=== PATIENT | female | born 1980 | race Caucasian/White ===

== ENCOUNTER 2016-06-04 10:12 | Outpatient (CLI) | payer OTHER ==
[2016-06-04 10:41] LABS: Glucose,Whole Blood 92 mg/dL (75-99)
== END 2016-06-04 12:00 | disposition home or self-care (01) ==
LOC: FBPOP 10:12
PROVIDERS: ATTEND Obstetrics & Gynecology
DX: O42.92 Full-term premature rupture of membranes, unspecified as to length of time between rupture and onset of labor (principal); O99.333 Smoking (tobacco) complicating pregnancy, third trimester; F17.200 Nicotine dependence, unspecified, uncomplicated; Z3A.38 38 weeks gestation of pregnancy
CPT/HCPCS: 59025; 99213

== ENCOUNTER 2016-06-04 15:12 | Inpatient (IN) | payer OTHER ==
[2016-06-04] MEDS ORDERED: LACTATED RINGERS 1,000 ML IV ONE (15:50)
[2016-06-04] MEDS ORDERED: ceFAZolin 3 GM in SODIUM CHLORIDE 0.9% 100 ML IVPB ONE (15:50)
[2016-06-04] MEDS ORDERED: CITRIC ACID-SODIUM CITRATE 15 ML CUP PO ONE (15:50)
[2016-06-04] MEDS ORDERED: LACTATED RINGERS 1,000 ML IV SCH (16:00)
[2016-06-04 16:06] LABS: Basophils % (A) 0 %; CH 29.2; CHCM 33.7; Eosinophils % (A) 0 %; HCT 41.4 % (34.0-46.0); HDW 2.58; HGB 13.7 gm/dL (11.4-16.0); Luc # (Auto) 0.11; Luc % (Auto) 1; Lymphocytes # (A) 1.7 k/uL (1.0-4.8); Lymphocytes % (A) 13 %; MCH 28.8 pg (25.0-35.0); MCV 87.1 fL (80.0-100.0); Mean Platelet Volume 8.2; Monocytes # (A) 0.6 k/uL (0-1.0); Monocytes % (A) 5 %; Neutrophils # (A) 10.3 k/uL (1.3-7.7); Neutrophils % (A) 80 %; RBC 4.75 m/uL (3.80-5.40); RDW 15.9 % (11.5-15.5); WBC 12.9 k/uL (3.8-10.6)
[2016-06-04 16:19] VITALS: BMI 55.2
--- NOTE | 2016-06-04 16:46 | P.HPOB ---
History of Present Illness H&P Date: 06/04/16 Chief Complaint: spontaneous amniorrhexis at home, green fluid this is a 35-year-old white female 2 para 1001 EDC 06/16/2016 at 38-2/ 7 weeks' gestation. Patient presents with spontaneous amniorrhexis which occurred at home, approximately 7:00 this morning. She has been having continuous fluid leakage since that time. fetus is been active throughout the . Past medical history significant for anxiety and depression, recently discontinued her Celexa. Gestational diabetes, morbid obesity. Past surgical history low transverse section , cholecystectomy 2015, I surgery in 1993. Current medications vitamins daily. ALLERGIES to bee stings, no other drug ALLERGIES noted. Family history significant for bipolar disorder hypertension and type 2 diabetes. Social history patient is , she works for the [employer], one half pack per day tobacco. She denies alcohol or drug use with the . Obstetric history is significant for blood type A-, rubella status immune, VDRL testing , gonorrhea and chlamydia cultures all negative. group B strep cultures negative. One-hour Glucola and three-hour GTT consistent with gestational diabetes, moderate to severe blood sugar control. HIV testing, hepatitis B surface antigen both negative. On exam this is a white female who is 5 foot 10 inches, 385 pounds, vital signs are stable and patient is afebrile. the exam is significant for peripheral edema as well as edema of the abdominal wall. there is positive amniosure for green fluid. heart rate is in the 1 40s with accelerations, consistent with reactive NST. Impression: 38-2/7 weeks intrauterine , spontaneous amniorrhexis, meconium-stained fluid, gestational diabetes with moderate to fair blood sugar control, previous section, patient declining . Plan: For repeat low transverse section. Patient is also requesting tubal ligation and consent has been signed for same. She is aware of the risks benefits and alternatives of this plan. 3 g of Have Been Given. Past Medical History Additional Past Medical History / Comment(s): Afton's disease-causes lymphedema legs, flank pain, fatty liver History of Any Multi-Drug Resistant Organisms: None Reported Past Surgical History: Section Additional Past Surgical History / Comment(s): eye surg., colonoscopy, gestational diabetes 01/16, gall bladder 07/2015 Past Anesthesia/Blood Transfusion Reactions: No Reported Reaction Past Psychological History: Anxiety, Depression Smoking Status: Current every day smoker Past Alcohol Use History: None Reported Additional Past Alcohol Use History / Comment(s): <ppd since age of 17 Past Drug Use History: None Reported - Past Family History Mother Family Medical History: No Reported History Medications and Allergies Home Medications Medication Instructions Recorded Confirmed Type Pnv with Ca,No.72/Iron/FA 1 tab PO DAILY 01/12/16 06/04/16 History [ Plus Tablet] Allergies Allergy/AdvReac Type Severity Reaction Status Date / Time No Known Allergies Allergy Verified 01/12/16 15:36 Exam - Vital Signs Vital signs: Vital Signs Temp Pulse Resp BP Pulse Ox 06/04/16 16:00 97.3 F L 95 17 141/93 97 Intake and Output 06/04/16 06/04/16 06/04/16 06:59 14:59 22:59 Other: Weight 174.633 kg Patient Weight 06/05/16 06:59 Weight 174.633 kg Results Result Diagrams: 06/04/16 15:50 Abnormal Lab Results - Last 24 Hours (Table) 06/04/16 Range/Units 15:50 WBC 12.9 H (3.8-10.6) k/uL RDW 15.9 H (11.5-15.5) % Neutrophils # 10.3 H (1.3-7.7) k/uL
[2016-06-04] MEDS ORDERED: ePHEDrine 50 MG/ML 1 ML AMP ONE (16:53)
[2016-06-04] MEDS ORDERED: NALBUPHINE 10 MG/ML AMPUL ONE (16:53)
[2016-06-04] MEDS ORDERED: OXYTOCIN 10 UNIT/ML 1 ML VIAL IM ONE (16:53)
[2016-06-04] MEDS ORDERED: ONDANSETRON 4 MG/2 ML VIAL ONE (16:53)
[2016-06-04] MEDS ORDERED: MORPHINE SULFATE (PF) 0.3 MG/0.3 ML SYR ONE (16:53)
[2016-06-04] MEDS ORDERED: NALOXONE 0.4 MG/ML 1 ML VIAL IV PRN (17:34)
[2016-06-04] MEDS ORDERED: ONDANSETRON 4 MG/2 ML VIAL IVP PRN (17:34)
[2016-06-04] MEDS ORDERED: diphenhydrAMINE 50 MG/ML 1 ML VIAL IVP PRN ×3 (17:34→17:47)
[2016-06-04] MEDS ORDERED: MORPHINE SULFATE 4 MG/ML SYRINGE IVP PRN (17:34)
[2016-06-04] MEDS ORDERED: diphenhydrAMINE 25 MG CAP PO PRN (17:47)
[2016-06-04] MEDS ORDERED: diphenhydrAMINE 50 MG CAP PO PRN (17:47)
[2016-06-04] MEDS ORDERED: METOCLOPRAMIDE 5 MG/ML 2 ML VIAL IVP PRN (17:47)
[2016-06-04] MEDS ORDERED: ACETAMINOPHEN TAB 325 MG TAB PO PRN (17:47)
[2016-06-04] MEDS ORDERED: IBUPROFEN 600 MG TAB PO PRN (17:47)
[2016-06-04] MEDS ORDERED: SIMETHICONE 80 MG CHEWABLE PO PRN (17:47)
[2016-06-04] MEDS ORDERED: ACETAMINOPHEN IV (For NPO) 1,000 MG in EMPTY BAG 1 BAG IVPB ONE (17:47)
[2016-06-04] MEDS ORDERED: ZOLPIDEM 5 MG TAB PO PRN (17:47)
--- NOTE | 2016-06-04 17:47 | P.OP ---
Date of Procedure: 06/04/16 Preoperative Diagnosis: 38-2/7 weeks, meconium-stained fluid, previous , declining , undesired fertility, morbid obesity. Postoperative Diagnosis: Liveborn male . Procedure(s) Performed: Repeat low transverse section with tubal ligation utilizing Filshie clips Implants: Anesthesia: spinal Surgeon: Dominique Saravia Senior Manager Mmcoe #1: Kiko Rodriguez Estimated Blood Loss (ml): 400 IV fluids (ml): 1,000 Urine output (ml): 100 Pathology: other (Placenta) Condition: stable Disposition: PACU Indications for Procedure: Operative Findings: Description of Procedure: Patient presents to labor and delivery with spontaneous amniorrhexis which occurred at home, meconium-stained fluid. The King catheter is placed to direct drainage. The informed consent is reviewed signed witnessed and dated. Preparations are made for repeat low transverse section with tubal ligation utilizing Filshie clips. 3 g of Ancef are given. Patient is brought to the operating room where a spinal analgesia is administered without difficulty per Dr. Joe. She's placed in the dorsal supine position with left lateral uterine displacement. MARCELINA stockings are placed on the legs. The the abdomen is prepped and draped in usual sterile fashion. The analgesia is checked and noted to be adequate. A repeat low transverse skin incision is made in this is carried down through the subcutaneous tissue which is approximately 12 cm deep. Fascia is isolated, scored and extended with curved Jung scissors. Peritoneum is next identified and incised, there is no bowel or bladder involvement. The large disposable ring abdominal retractor is placed. The bladder is at all times Well from the operative field. A low transverse uterine incision is made in this is carried down to the endometrial cavity. The incision is extended with blunt dissection. Infant's head is delivered occiput anterior, there is no nuchal cord noted. The oropharynx, nasopharynx and external nares were all bulb suctioned on the abdominal wall. Patient is officially delivered of a liveborn male at 1715 hours. Umbilical cord is doubly clamped and ligated, he is handed to waiting nurses for evaluation where scores of 9 and 9 at one and 5 minutes respectively are given. Cord blood is sent to the lab for Rh- status. Placenta is delivered manually, it is noted to be darkly meconium stained, otherwise intact with trivascular cord. Uterus is externalized, massaged and wiped clean with a sterile sponge to avoid any retained products of conception. Edges of the uterine incision are grasped with Franklin clamps. Uterus is closed in a single full- thickness stitch with excellent hemostasis utilizing a running locking 0 Vicryl suture. Consent is once again reaffirmed, and Filshie clips are placed in the isthmic portion of bilateral tubes, with care to traverse the entire diameter of the tube into the mesal salpinx. Fimbriated ends are identified for proper placement. Bilateral ovaries appear normal to inspection. Abdomen is suctioned with suction on guard and the uterus is gently placed back into the abdominal cavity. Bilateral gutters are inspected and cleaned. The peritoneum was allowed to close by secondary intention. The fascia is closed in a running stitch of 0 Vicryl with over ligation in the midline. Subcutaneous tissue is irrigated, it is noted to be clean and dry. It is reapproximated with 3-0 Vicryl in a running stitch. Wide vijaya are used for final skin closure. Total estimated blood loss 400 mL's. All sponge needle and enhancement counts are correct at the end of the procedure. King is noted to be draining clear urine. Patient is brought back to the recovery room in very good condition with stable vital signs including blood pressure 130/80, pulse 102. Patient and her are requesting circumcision further infant son.
[2016-06-04] MEDS ORDERED: OXYTOCIN 30 UNITS/500 ML NS 30 UNIT in SALINE 1 500ML.BAG IV SCH (18:00)
[2016-06-04] MEDS: KETOROLAC 30 MG/ML 1 ML VIAL IVP PRN (19:45)
[2016-06-04] MEDS: LACTATED RINGERS 1,000 ML IV SCH (20:38)
[2016-06-04] MEDS: SENNOSIDES-DOCUSATE SODIUM 1 EACH TAB PO SCH (20:39)
[2016-06-05] MEDS ORDERED: Rhogam IMMUNE GLOBULIN 1,500 UNIT/1 ML IM ONE (01:28)
[2016-06-05] MEDS: KETOROLAC 30 MG/ML 1 ML VIAL IVP PRN ×4 (02:00→21:14)
[2016-06-05] MEDS: LACTATED RINGERS 1,000 ML IV SCH ×2 (02:25→20:45)
[2016-06-05 05:03] LABS: Hemoglobin A1C 5.5 % (4.2-6.1)
[2016-06-05] MEDS: SENNOSIDES-DOCUSATE SODIUM 1 EACH TAB PO SCH ×2 (08:11→20:45)
--- NOTE | 2016-06-05 08:24 | P.PN ---
Progress Note - Text Date: 06/05/2016 Time: 715 The patient is status post section Vital signs stable VAS: 0-10 Patient has no complaints of pain. The patient incurred some minimal itching yesterday, this itching is now subsiding. Pain meds to be managed by service.
--- NOTE | 2016-06-05 08:39 | P.PN ---
Subjective Principal diagnosis: Postoperative day #1 Slept well. Positive flatus. Minimal pain. Objective - Vital Signs Vital signs: Vital Signs Temp 98.7 F 06/05/16 08:00 Pulse 94 06/05/16 08:00 Resp 16 06/05/16 08:00 BP 124/82 06/05/16 08:00 Pulse Ox 98 06/05/16 06:00 Intake & Output 06/04/16 06/05/16 06/05/16 18:59 06:59 18:59 Intake Total 2200 750 Output Total 750 150 Balance 1450 600 Weight 174.633 kg Intake: IV 1000 750 Lactated Ringers 1,000 ml 1000 750 @ 125 mls/hr IV .Q8H [facility] Rx#:[id number] Other 1200 Output: Urine 750 150 Uretheral (King) 325 Other: # Voids 1 - Constitutional General appearance: Present: average body habitus, morbidly obese - EENT Eyes: Present: PERRLA ENT: Present: hearing grossly normal - Neck Neck: Present: normal ROM Thyroid: bilateral: normal size - Respiratory Respiratory: bilateral: CTA - Cardiovascular Rhythm: regular - Gastrointestinal Gastrointestinal Comment(s): Fundus firm, midline, symmetric. Abdomen morbidly obese. Incision clean and dry, well approximated. Active bowel sounds. - Integumentary Integumentary: Present: normal - Neurologic Neurologic: Present: CNII-XII intact - Musculoskeletal Musculoskeletal: Present: gait normal, strength equal bilaterally - Psychiatric Psychiatric: Present: A&O x's 3, appropriate affect, intact judgment & insight - Labs CBC & Chem 7: 06/04/16 15:50 Labs: Abnormal Lab Results - Last 24 Hours (Table) 06/04/16 Range/Units 15:50 WBC 12.9 H (3.8-10.6) k/uL RDW 15.9 H (11.5-15.5) % Neutrophils # 10.3 H (1.3-7.7) k/uL Assessment and Plan Plan: Continue postoperative care. Likely discharge home tomorrow. Advanced diet and activity. Time with Patient: Less than 30
[2016-06-05 09:21] LABS: Basophils % (A) 0 %; CH 28.5; CHCM 32.5; Eosinophils # (A) 0.1 k/uL (0-0.7); Eosinophils % (A) 1 %; HDW 2.55; HGB 12.5 gm/dL (11.4-16.0); Luc # (Auto) 0.12; Luc % (Auto) 1; Lymphocytes # (A) 1.7 k/uL (1.0-4.8); Lymphocytes % (A) 15 %; MCH 29.1 pg (25.0-35.0); MCHC 32.9 g/dL (31.0-37.0); MCV 88.3 fL (80.0-100.0); Mean Platelet Volume 7.5; Monocytes # (A) 0.6 k/uL (0-1.0); Monocytes % (A) 5 %; Neutrophils # (A) 8.9 k/uL (1.3-7.7); Neutrophils % (A) 78 %; RDW 15.9 % (11.5-15.5); WBC 11.5 k/uL (3.8-10.6)
[2016-06-05 17:05] VITALS: RESP 16
[2016-06-05] MEDS ORDERED: HYDROmorphone 1 MG/ML 1 ML SYRINGE IVP STA (22:59)
[2016-06-05] MEDS ORDERED: Acetaminophen-Codeine 300-30mg TAB PO PRN (23:00)
[2016-06-05] MEDS: Acetaminophen-Codeine 300-30mg TAB PO PRN (23:38)
[2016-06-06] MEDS: Acetaminophen-Codeine 300-30mg TAB PO PRN ×2 (05:01→14:08)
--- NOTE | 2016-06-06 08:35 | P.DS ---
Providers Date of admission: 06/04/16 15:34 Expected date of discharge: 06/06/16 Attending physician: Domniique Saravia Primary care physician: Stated None - Discharge Diagnosis(es) (1) History of Current Visit: Yes Status: Acute (2) Rh negative, maternal Current Visit: Yes Status: Acute (3) Family planning Current Visit: Yes Status: Acute (4) Meconium in amniotic fluid Current Visit: Yes Status: Acute (5) Morbid obesity Current Visit: Yes Status: Acute Hospital Course: This is a 35-year-old 2 now 2 para 2 woman who presented at 38-2/7 weeks ' gestation with spontaneous rupture of green amniotic fluid. Her history was significant for previous low transverse section. She was admitted and went to the operating room where she underwent a repeat low transverse section with bilateral tubal ligation. Findings at the time of surgery were significant for meconium stained fluid and an infant with Apgars of 9 at 1 minute and 9 at 5 minutes. Weight is not recorded. The patient's postoperative course was unremarkable. By postoperative day #1 she was doing well on and was ambulating and voiding without difficulty. On postoperative day #2 when I evaluated her the patient was very tearful and upset. She strongly desired discharge home. She reported being unable to rest or sleep. She described the infant does not allowing her to rest. She complained of inadequate pain control. I did recommend that she remain in the hospital for further assistance with the infant so that she could get more sleep as well as optimize her pain control. She declines this and strongly desires discharge home. Her incision does appear edematous however no erythema. I do not think the vijaya are ready for removal and she will need to return to the office for this to be done. She is morbidly obese with severe lower extremity edema however no evidence of redness or asymmetry. She was discharged home with routine instructions for care and follow-up per her strong desire. Patient Condition at Discharge: Stable Plan - Discharge Summary New Discharge Prescriptions: Acetaminophen-Codeine 300-30mg [Tylenol w/codeine #3] 2 each PO Q4HR PRN #30 tab PRN Reason: Pain Scale 6 To 10 Ibuprofen [Motrin] 800 mg PO Q6HR PRN #30 tab PRN Reason: Mild Pain Or Fever >= 100.5 Discharge Medication List Pnv with Ca,No.72/Iron/FA [ Plus Tablet] 1 tab PO DAILY 01/12/16 [ History] Acetaminophen-Codeine 300-30mg [Tylenol w/codeine #3] 2 each PO Q4HR PRN #30 tab 06/06/16 [Rx] Ibuprofen [Motrin] 800 mg PO Q6HR PRN #30 tab 06/06/16 [Rx] Follow up Appointment(s)/Referral(s): Dominique Saravia MD [STAFF PHYSICIAN] - 06/11/16 (staple removal) Activity/Diet/Wound Care/Special Instructions: Follow-up in 2 weeks after surgery in the office. Call the office with any concerning signs or symptoms including fever greater than 101, severe abdominal pain, heavy vaginal bleeding, signs of wound infection, increased swelling or redness of the lower extremities, signs of depression. No driving for 2 weeks after surgery. No heavy lifting or vigorous activity until reevaluated in the office. No intercourse for 6 weeks after delivery. Discharge Disposition: HOME SELF-CARE
[2016-06-06 09:01] VITALS: BP 132/75; PULSE 82; TEMP 98.3
[2016-06-06] MEDS: SENNOSIDES-DOCUSATE SODIUM 1 EACH TAB PO SCH (09:01)
== END 2016-06-06 14:20 | disposition home or self-care (01) | DRG 765 ==
LOC: FBPOP 15:12 → 4FBP 15:34
PROVIDERS: ADMIT Obstetrics & Gynecology; ATTEND Obstetrics & Gynecology
PROC: 0UL70CZ Occlusion of Bilateral Fallopian Tubes with Extraluminal Device, Open Approach (ICD-10-PCS; 2016-06-04)
PROC: 3E0R3NZ Introduction of Analgesics, Hypnotics, Sedatives into Spinal Canal, Percutaneous Approach (ICD-10-PCS; 2016-06-04)
PROC: 10D00Z1 Extraction of Products of Conception, Low, Open Approach (ICD-10-PCS; principal; 2016-06-04 17:00)
PROC: 3E0234Z Introduction of Serum, Toxoid and Vaccine into Muscle, Percutaneous Approach (ICD-10-PCS; 2016-06-05)
DX: O75.82 Onset (spontaneous) of labor after 37 completed weeks of gestation but before 39 completed weeks gestation, with delivery by (planned) cesarean section (principal); Z68.43 Body mass index [BMI] 50.0-59.9, adult; K76.0 Fatty (change of) liver, not elsewhere classified; O26.62 Liver and biliary tract disorders in childbirth; E66.01 Morbid (severe) obesity due to excess calories; O24.420 Gestational diabetes mellitus in childbirth, diet controlled; O34.211 Maternal care for low transverse scar from previous cesarean delivery; O99.334 Smoking (tobacco) complicating childbirth; F17.200 Nicotine dependence, unspecified, uncomplicated; O99.344 Other mental disorders complicating childbirth; O77.0 Labor and delivery complicated by meconium in amniotic fluid; Q82.0 Hereditary lymphedema; O99.89 Other specified diseases and conditions complicating pregnancy, childbirth and the puerperium; O26.893 Other specified pregnancy related conditions, third trimester; O99.214 Obesity complicating childbirth; N85.8 Other specified noninflammatory disorders of uterus; F32.9 Major depressive disorder, single episode, unspecified; F41.9 Anxiety disorder, unspecified; Z30.2 Encounter for sterilization; Z82.49 Family history of ischemic heart disease and other diseases of the circulatory system; Z83.3 Family history of diabetes mellitus; Z90.49 Acquired absence of other specified parts of digestive tract; Z37.0 Single live birth; Z3A.38 38 weeks gestation of pregnancy; Z67.11 Type A blood, Rh negative; Z91.030 Bee allergy status; Z81.8 Family history of other mental and behavioral disorders
CPT/HCPCS: 83036; 85025; 85461; 86850; 86870; 86880; 86900; 86901; 88307

== ENCOUNTER 2016-06-19 11:22 | Emergency (ER) | payer OTHER ==
[2016-06-19 12:43] LABS: Basophils # (A) 0.1 k/uL (0-0.2); Basophils % (A) 1 %; CH 28.4; CHCM 32.9; Eosinophils # (A) 0.1 k/uL (0-0.7); Eosinophils % (A) 2 %; HCT 46.9 % (34.0-46.0); HDW 2.48; HGB 15.2 gm/dL (11.4-16.0); Luc # (Auto) 0.12; Luc % (Auto) 2; Lymphocytes # (A) 0.8 k/uL (1.0-4.8); Lymphocytes % (A) 16 %; MCHC 32.4 g/dL (31.0-37.0); MCV 86.6 fL (80.0-100.0); Mean Platelet Volume 6.6; Monocytes # (A) 0.4 k/uL (0-1.0); Monocytes % (A) 7 %; Neutrophils # (A) 3.8 k/uL (1.3-7.7); Neutrophils % (A) 73 %; RBC 5.41 m/uL (3.80-5.40); RDW 14.9 % (11.5-15.5); WBC 5.3 k/uL (3.8-10.6); WBC (Perox) 5.47
[2016-06-19 12:51] LABS: INR 1.1 (<1.1); Prothrombin Time 11.2 sec (9.0-12.0)
[2016-06-19 12:52] LABS: ALT 89 U/L (9-52); AST 53 U/L (14-36); Alkaline Phosphatase 158 U/L (38-126); Anion Gap 11 mmol/L; Blood Urea Nitrogen 10 mg/dL (7-17); Calcium 9.1 mg/dL (8.4-10.2); Carbon Dioxide 23 mmol/L (22-30); Chloride 103 mmol/L (98-107); Glucose 95 mg/dL (74-99); Non-African American GFR(MDRD) >60 (>60 ml/min/1.73 sqM); Potassium 4.5 mmol/L (3.5-5.1); Sodium 137 mmol/L (137-145); Total Bilirubin 0.5 mg/dL (0.2-1.3); Total Protein 7.3 g/dL (6.3-8.2)
[2016-06-19] MEDS ORDERED: IPRATROPIUM-ALBUTEROL 3 ML NEB INHALATION STA (12:55)
--- NOTE | 2016-06-19 12:58 | ED ---
Fever HPI - General Chief Complaint: Fever Stated Complaint: Sob sent by Dr saravia Time Seen by Provider: 06/19/16 12:30 Source: patient, RN notes reviewed Mode of arrival: ambulatory Limitations: no limitations - History of Present Illness Initial Comments: This is a 35-year-old female with a history of a on June 04 who states she's had the onset over last 2 days of cough with mucus type phlegm she' s had fevers chills and sweats for the past 2 nights she is currently on Augmentin but that does not seem to be helping. She also states she is a little short of breath. She is a smoker but has no history of asthma or COPD. She does not use an inhaler. He does state that after she had her vijaya taken out when she got home that day she did have some fluid leaked out from the description sounds like a seroma. The wound is otherwise a healing well. She denies any abdominal pain dysuria hematuria. She does have some rhinorrhea no earaches or sore throat. MD Complaint: fever, other - Related Data Home Medications Medication Instructions Recorded Confirmed Pnv with Ca,No.72/Iron/FA 1 tab PO DAILY 01/12/16 06/19/16 [ Plus Tablet] Acetaminophen-Codeine 300-30mg 2 tab PO Q4HR PRN 06/19/16 06/19/16 [Tylenol w/codeine #3] Previous Rx's Medication Instructions Recorded Ibuprofen [Motrin] 800 mg PO Q6HR PRN #30 tab 06/06/16 Ipratropium/Albuterol Sulfate 1 puff INHALATION QID #1 inhaler 06/19/16 [Combivent Respimat Inhaler] predniSONE 20 mg PO BID #10 tab 06/19/16 Allergies Allergy/AdvReac Type Severity Reaction Status Date / Time No Known Allergies Allergy Verified 01/12/16 15:36 Review of Systems ROS Statement: Those systems with pertinent positive or pertinent negative responses have been documented in the HPI. ROS Other: All systems not noted in ROS Statement are negative. Past Medical History Additional Past Medical History / Comment(s): Rentz's disease-causes lymphedema legs, flank pain, fatty liver History of Any Multi-Drug Resistant Organisms: None Reported Past Surgical History: Section, Cholecystectomy Additional Past Surgical History / Comment(s): eye surg., colonoscopy, gestational diabetes 8/16, gall bladder 07/2015 Past Anesthesia/Blood Transfusion Reactions: No Reported Reaction Past Psychological History: Anxiety, Depression Smoking Status: Current every day smoker Past Alcohol Use History: None Reported Additional Past Alcohol Use History / Comment(s): <ppd since age of 17 Past Drug Use History: None Reported - Past Family History Mother Family Medical History: No Reported History General Exam - General Exam Comments Initial Comments: This is a well-developed well-nourished awake alert oriented x3 female Limitations: no limitations General appearance: alert, in no apparent distress Head exam: Present: atraumatic, normocephalic, normal inspection Eye exam: Present: normal appearance, PERRL, EOMI. Absent: scleral icterus, conjunctival injection, periorbital swelling ENT exam: Present: mucous membranes moist, other (ALLERGIES nasal mucosa otherwise unremarkable exam) Neck exam: Present: normal inspection. Absent: tenderness, meningismus, lymphadenopathy Respiratory exam: Present: decreased breath sounds. Absent: respiratory distress, wheezes, rales, rhonchi, stridor Cardiovascular Exam: Present: normal rhythm, tachycardia, normal heart sounds. Absent: systolic murmur, diastolic murmur, rubs, gallop, clicks GI/Abdominal exam: Present: soft, normal bowel sounds, other (Well-healing C- section scar no evidence of any drainage or dehiscence at this time). Absent: distended, tenderness, guarding, rebound, rigid Rectal exam: Present: deferred Extremities exam: Present: normal inspection, full ROM, normal capillary refill. Absent: tenderness, pedal edema, joint swelling, calf tenderness Back exam: Present: normal inspection Neurological exam: Present: alert, oriented X3, CN II-XII intact Psychiatric exam: Present: normal affect, normal mood Skin exam: Present: warm, dry, intact, normal color. Absent: rash Course Vital Signs 06/19/16 06/19/16 06/19/16 11:45 12:28 12:29 Temperature 100.9 F H 101.0 F H Pulse Rate 115 H 114 H Respiratory 18 Rate Blood Pressure 139/88 O2 Sat by Pulse 95 93 L 96 Oximetry 06/19/16 06/19/16 06/19/16 12:30 13:18 13:27 Temperature Pulse Rate 108 H 106 H Respiratory 28 H Rate Blood Pressure O2 Sat by Pulse Oximetry 06/19/16 13:50 Temperature 100.6 F H Pulse Rate 99 Respiratory 18 Rate Blood Pressure 144/81 O2 Sat by Pulse 97 Oximetry - Reevaluation(s) Reevaluation #1: 06/19/16 15:45 Patient did improve after the updraft. Increased aeration minimal evidence of wheezing. Medical Decision Making - Medical Decision Making I did discuss findings with the patient later with Dr. Saravia. Patient presents with evidence of influenza type A with bronchospasm. We did a long discussion about smoking cessation lasting 3.3 minutes. Patient will be placed on a inhaler as well as a short course of oral steroids. She is to otherwise use symptomatic care. The symptoms have been going on for 3-4 days well outside when of opportunity for antiviral. - Lab Data Result diagrams: 06/19/16 12:25 06/19/16 12:25 Lab Results 06/19/16 06/19/16 06/19/16 Range/Units 12:25 12:25 12:25 WBC 5.3 (3.8-10.6) k/uL RBC 5.41 H (3.80-5.40) m/uL Hgb 15.2 (11.4-16.0) gm/dL Hct 46.9 H (34.0-46.0) % MCV 86.6 (80.0-100.0) fL MCH 28.0 (25.0-35.0) pg MCHC 32.4 (31.0-37.0) g/dL RDW 14.9 (11.5-15.5) % Plt Count 248 (150-450) k/uL Neutrophils % 73 % Lymphocytes % 16 % Monocytes % 7 % Eosinophils % 2 % Basophils % 1 % Neutrophils # 3.8 (1.3-7.7) k/uL Lymphocytes # 0.8 L (1.0-4.8) k/uL Monocytes # 0.4 (0-1.0) k/uL Eosinophils # 0.1 (0-0.7) k/uL Basophils # 0.1 (0-0.2) k/uL PT (9.0-12.0) sec INR (<1.1) APTT (22.0-30.0) sec Sodium 137 (137-145) mmol/L Potassium 4.5 (3.5-5.1) mmol/L Chloride 103 (98-107) mmol/L Carbon Dioxide 23 (22-30) mmol/L Anion Gap 11 mmol/L BUN 10 (7-17) mg/dL Creatinine 0.64 (0.52-1.04) mg/dL Est GFR (MDRD) Af Amer >60 (>60 ml/min/1.73 sqM) Est GFR (MDRD) Non-Af >60 (>60 ml/min/1.73 sqM) Glucose 95 (74-99) mg/dL Plasma Lactic Acid Phani 0.8 (0.7-2.0) mmol/L Calcium 9.1 (8.4-10.2) mg/dL Total Bilirubin 0.5 (0.2-1.3) mg/dL AST 53 H (14-36) U/L ALT 89 H (9-52) U/L Alkaline Phosphatase 158 H (38-126) U/L Total Protein 7.3 (6.3-8.2) g/dL Albumin 4.1 (3.5-5.0) g/dL Urine Color Urine Appearance (Clear) Urine pH (5.0-8.0) Ur Specific [place] (1.001-1.035) Urine Protein (Negative) Urine Glucose (UA) (Negative) Urine Ketones (Negative) Urine Blood (Negative) Urine Nitrate (Negative) Urine Bilirubin (Negative) Urine Urobilinogen (<2.0) mg/dL Ur Leukocyte Esterase (Negative) Urine RBC (0-5) /hpf Urine WBC (0-5) /hpf Ur Squamous Epith Cells (0-4) /hpf Urine Bacteria (None) /hpf Urine Mucus (None) /hpf Influenza Type A RNA (Not Detectd) Influenza Type B (PCR) (Not Detectd) 06/19/16 06/19/16 06/19/16 Range/Units 12:25 14:07 14:55 WBC (3.8-10.6) k/uL RBC (3.80-5.40) m/uL Hgb (11.4-16.0) gm/dL Hct (34.0-46.0) % MCV (80.0-100.0) fL MCH (25.0-35.0) pg MCHC (31.0-37.0) g/dL RDW (11.5-15.5) % Plt Count (150-450) k/uL Neutrophils % % Lymphocytes % % Monocytes % % Eosinophils % % Basophils % % Neutrophils # (1.3-7.7) k/uL Lymphocytes # (1.0-4.8) k/uL Monocytes # (0-1.0) k/uL Eosinophils # (0-0.7) k/uL Basophils # (0-0.2) k/uL PT 11.2 (9.0-12.0) sec INR 1.1 (<1.1) APTT 27.0 (22.0-30.0) sec Sodium (137-145) mmol/L Potassium (3.5-5.1) mmol/L Chloride (98-107) mmol/L Carbon Dioxide (22-30) mmol/L Anion Gap mmol/L BUN (7-17) mg/dL Creatinine (0.52-1.04) mg/dL Est GFR (MDRD) Af Amer (>60 ml/min/1.73 sqM) Est GFR (MDRD) Non-Af (>60 ml/min/1.73 sqM) Glucose (74-99) mg/dL Plasma Lactic Acid Phani (0.7-2.0) mmol/L Calcium (8.4-10.2) mg/dL Total Bilirubin (0.2-1.3) mg/dL AST (14-36) U/L ALT (9-52) U/L Alkaline Phosphatase (38-126) U/L Total Protein (6.3-8.2) g/dL Albumin (3.5-5.0) g/dL Urine Color Yellow Urine Appearance Cloudy H (Clear) Urine pH 6.0 (5.0-8.0) Ur Specific [place] 1.004 (1.001-1.035) Urine Protein Negative (Negative) Urine Glucose (UA) Negative (Negative) Urine Ketones Negative (Negative) Urine Blood Large H (Negative) Urine Nitrate Negative (Negative) Urine Bilirubin Negative (Negative) Urine Urobilinogen <2.0 (<2.0) mg/dL Ur Leukocyte Esterase Large H (Negative) Urine RBC 1 (0-5) /hpf Urine WBC 9 H (0-5) /hpf Ur Squamous Epith Cells 3 (0-4) /hpf Urine Bacteria Rare H (None) /hpf Urine Mucus Rare H (None) /hpf Influenza Type A RNA Detected H (Not Detectd) Influenza Type B (PCR) Not Detected (Not Detectd) - EKG Data -: EKG Interpreted by Me EKG shows normal: sinus rhythm (Sinus tachycardia rate of 11 appear interval 140 QRS duration 84 daily since QTC of 320/414 right axis noted. No acute ST-T wave changes) - Radiology Data Radiology results: report reviewed (I did review the imaging and report no evidence of PE evidence of atelectasis in the right middle lobe.), image reviewed Disposition Clinical Impression: Influenza, Acute bronchospasm, Febrile illness, acute Disposition: HOME SELF-CARE Condition: Good Instructions: Fever in Adults (ED), Influenza (ED), Bronchospasm (ED), How to Stop Smoking (ED), Secondhand Smoke Exposure in Children (ED) Prescriptions: Ipratropium/Albuterol Sulfate [Combivent Respimat Inhaler] 1 puff INHALATION QID #1 inhaler predniSONE 20 mg PO BID #10 tab
[2016-06-19] MEDS ORDERED: RX INFO: IV CONTRAST WAS GIVEN 1 EACH MISC MISCELLANE PRN (13:14)
--- NOTE | 2016-06-19 13:24 | XR ---
EXAMINATION TYPE: XR chest 2V DATE OF EXAM: 06/19/2016 1:17 PM COMPARISON: 07/22/2014 HISTORY: Cough and fever x 2 days TECHNIQUE: Frontal and lateral views of the chest are obtained. FINDINGS: There is no focal air space opacity. No evidence for pnuemothorax.No pleural effusion. The cardiac silhouette size is within normal limits. The osseous structures are grossly intact. IMPRESSION: 1. No acute cardiopulmonary process.
[2016-06-19 13:51] VITALS: RESP 18
[2016-06-19 14:35] LABS: Appearance,Urine Cloudy (Clear); Bacteria,Urine Rare /hpf; Bilirubin,Urine Negative (Negative); Glucose,Urine (UA) Negative (Negative); Ketones,Urine Negative (Negative); Leukocyte Esterase,Urine Large (Negative); Mucus,Urine Rare /hpf; Nitrite,Urine Negative (Negative); Particle Count 6185; Protein,Urine Negative (Negative); RBC,Urine 1 /hpf (0-5); Specific Gravity,Urine 1.004 (1.001-1.035); Squamous Epithelial Cell,Urine 3 /hpf (0-4); UA Billing (MACRO vs. MICRO) MICRO; Urobilinogen,Urine <2.0 mg/dL (<2.0); WBC,Urine 9 /hpf (0-5)
--- NOTE | 2016-06-19 15:06 | CT ---
CT CHEST FOR PULMONARY EMBOLISM. EXAMINATION TYPE: CT angio chest DATE OF EXAM: 06/19/2016 2:52 PM INDICATION: SOB. [address] DLP: 1214 mGycm, Automated exposure control for dose reduction was used. CONTRAST: Patient injected with 100 ml mL of Omnipaque 350. COMPARISON: NONE TECHNIQUE: CT of the chest is performed on a spiral scan at 2 mm thick sections. Study is performed with intravenous contrast timed for evaluation for pulmonary embolism. This will limit additional po rtions of the evaluation. 3-D MIP images reconstructed by the technologist are reviewed on the compu ter in the coronal and sagittal planes. FINDINGS: No persistent filling defects are evident to suggest an acute pulmonary embolism. Contrast opacificat ion is suboptimal. No mediastinal or hilar adenopathy enlarged by CT criteria is evident. The ascending aorta diameter at the level of the main pulmonary artery is 3.1 cm. The main pulmonary artery diameter at the bifur cation is 2.9 cm. There is an area of pneumonitis within the right middle lobe. Correlate for atelectasis. Limited CT section through the upper abdomen are unremarkable. IMPRESSIONS: 1. No acute pulmonary embolism. 2. Mild pneumonitis change within the right middle lobe. Correlate for atelectasis.
[2016-06-19] MEDS ORDERED: methylPREDNISolone SOD SUCCI 125 MG/2 ML VIAL IV STA (15:43)
[2016-06-19 16:07] VITALS: BP 147/76; PULSE 98; TEMP 99.8
== END 2016-06-19 16:07 | disposition home or self-care (01) ==
LOC: EC 11:22
DX: J11.1 Influenza due to unidentified influenza virus with other respiratory manifestations (principal); J98.01 Acute bronchospasm; O90.89 Other complications of the puerperium, not elsewhere classified; F17.200 Nicotine dependence, unspecified, uncomplicated
CPT/HCPCS: 36415; 94640; 93005; 80053; 83605; 85025; 85610; 85730; 81001; 87040; 87086; 87502; 71020; 71275; 96374; 99284; J2930; Q9967

== ENCOUNTER → 2016-08-09 | Outpatient (CLI) | payer OTHER ==
--- NOTE | 2016-08-09 18:07 | US ---
EXAMINATION TYPE: US venous doppler duplex LE RT DATE OF EXAM: 08/09/2016 5:50 PM COMPARISON: NONE CLINICAL HISTORY: M79.604 R leg pain. Numbness anterior lower right leg with pain x 3 days; HX of Rodrigo antunez's Lymphatic DX; recent delivery in June SIDE PERFORMED: right leg VESSELS IMAGED: Common Femoral Vein Deep Femoral Vein Greater Saphenous Vein * Femoral Vein Popliteal Vein Small Saphenous Vein * Proximal Calf Veins (* superficial vessels) TECHNOLOGIST IMPRESSION: wnl Right Leg: Negative for DVT. Tech findings were called to Dr Chu at exam's end. JJ IMPRESSION: Normal exam. No evidence of deep venous thrombosis in the right leg.
== END | disposition home or self-care (01) ==
LOC: RADUSMAIN 17:07
PROVIDERS: ATTEND Internal Medicine
DX: M79.604 Pain in right leg (principal)

== ENCOUNTER → 2016-08-20 | Outpatient (CLI) | payer OTHER ==
--- NOTE | 2016-08-21 07:08 | XR ---
EXAMINATION TYPE: XR lumbosacral spine min 4V DATE OF EXAM: 08/20/2016 12:04 PM COMPARISON: NONE HISTORY: 36-year-old female with low back pain TECHNIQUE: 7 views FINDINGS: There is leftward truncal shift noted. No pars interarticularis defect. Multilevel mild degenerative disc disease is present throughout with disc space narrowing and minimal endplate spondylosis. There is also facet arthropathy in the lower lumbar spine. Trace grade 1 retrolisthesis at L4-L5 and also a t L1-L2. Vertebral body heights are preserved. Bilateral tubal ligation clips. IMPRESSION: 1. Mild multilevel degenerative disc disease. 2. Additional facet arthropathy lower lumbar spine. There is trace grade 1 retrolisthesis at L1-L2 an d L4-L5. 3. Leftward truncal shift could be positional or due to muscle spasm.
== END ==
LOC: RADXRYALE 11:33
PROVIDERS: ATTEND Internal Medicine
DX: M51.36 Other intervertebral disc degeneration, lumbar region (principal); M46.96 Unspecified inflammatory spondylopathy, lumbar region; M43.16 Spondylolisthesis, lumbar region; M54.31 Sciatica, right side
CPT/HCPCS: 72110

== ENCOUNTER → 2018-08-19 | Outpatient (CLI) | payer OTHER ==
--- NOTE | 2018-08-19 14:11 | XR ---
EXAMINATION TYPE: XR chest 2V DATE OF EXAM: 08/19/2018 COMPARISON: 06/19/2016 HISTORY: Bilateral flank pain. Rib pain. TECHNIQUE: Frontal and lateral views of the chest are obtained. FINDINGS: There is no focal air space opacity, pleural effusion, or pneumothorax seen. The cardiac silhouette size is within normal limits. No acute osseous process. Minimal multilevel degenerative ch anges of the thoracic spine are seen. IMPRESSION: No acute cardiopulmonary process.
== END | disposition home or self-care (01) ==
LOC: RADXRYALE 11:53
PROVIDERS: ATTEND Internal Medicine
DX: R07.81 Pleurodynia (principal)
CPT/HCPCS: 71046

== ENCOUNTER → 2018-10-20 | Outpatient (CLI) | payer OTHER ==
--- NOTE | 2018-10-21 07:23 | US ---
EXAMINATION TYPE: US thyroid st tissue head/neck DATE OF EXAM: 10/20/2018 COMPARISON: NONE CLINICAL HISTORY: E04.9 enlarged thyroid. GLAND SIZE: Right Lobe: 6.4 x 3.1 x 2.7 cm Overall Parenchyma: homogenous Left Lobe: 5.5 x 1.9 x 2.5 cm Overall Parenchyma: homogeneous Isthmus Thickness: 0.7 cm NODULES RIGHT: # of nodules measured on right: 2 1. 3.3 X 2.3 x 2.7 cm isoechoic solid nodule at the mid pole with well-defined margins. This nodul e is wider than tall and shows intranodular vascularity. No prior 2. 0.9 X 0.9 x 0.9 cm anechoic mixed nodule at the lower pole with well-defined margins. This nodul e is wider than tall and shows no intranodular vascularity. No prior LEFT: # of nodules measured on left: 1 1. 1.1 x 0.9 x 1.0 cm isoechoic mixed nodule at the mid pole with well-defined margins. This nodu le is wider than tall and shows intranodular vascularity. No prior ISTHMUS: # of nodules measured in the isthmus: 0 Bilateral neck scanned, no evidence of lymphadenopathy. Patient appears to have swelling at the area of the submandibular gland, no mass seen here. Patient morbidly obese with a large neck, technically difficult. IMPRESSION: Multinodular goiter with a dominant 3.3 cm right thyroid nodule for which fine-needle aspiration coul d be considered. No sonographic abnormality is seen in the region of the submandibular gland at the p atient's area of status swelling. If there is further concern CTA neck with contrast could be perform ed.
== END | disposition home or self-care (01) ==
LOC: RADUSWWP 16:37
PROVIDERS: ATTEND Internal Medicine
DX: E04.2 Nontoxic multinodular goiter (principal)
CPT/HCPCS: 76536

== ENCOUNTER → 2019-01-16 | Outpatient (CLI) | payer OTHER ==
--- NOTE | 2019-01-16 14:55 | XR ---
EXAMINATION TYPE: XR knee limited LT DATE OF EXAM: 01/16/2019 CLINICAL HISTORY: Left knee pain both the medial and lateral. TECHNIQUE: 2 views of the left knee are obtained. COMPARISON: None. FINDINGS: There is no acute fracture/dislocation evident in left knee. The tri-compartment joint sp aces appear within normal limits. Very small marginal osteophytes are seen of the lateral femoral con dyle and inferior patellar pole The overlying soft tissue appears unremarkable. IMPRESSION: There is no acute fracture or dislocation in the left knee. Mild bicompartmental arthros is.
== END | disposition home or self-care (01) ==
LOC: RADXRYALE 14:13
PROVIDERS: ATTEND Internal Medicine
DX: M17.12 Unilateral primary osteoarthritis, left knee (principal)

== ENCOUNTER → 2022-05-04 | Outpatient (CLI) | payer OTHER ==
--- NOTE | 2022-05-07 08:18 | MM ---
Reason for Exam: Screening (asymptomatic). Baseline mammogram. Patient History: Menarche at age 13. First Full-Term at age 25. Last menstrual period: 04/22/2022 Risk Values: Jen 5 year model risk: 0.5%. NCI Lifetime model risk: 9.0%. Prior Study Comparison: Patient's first Mammogram. No prior studies available for comparison. Tissue Density: The breast tissue is heterogeneously dense. This may lower the sensitivity of mammography. Findings: Analyzed By CAD. There is no suspicious group of microcalcifications or new suspicious mass in either breast. Overall Assessment: Negative, BI-RAD 1 Management: Screening Mammogram of both breasts in 1 year. A clinical breast exam by your physician is recommended on an annual basis and results should be correlated with mammographic findings. Electronically signed and approved by: Roddy Ribeiro M.D. Radiologis
== END | disposition home or self-care (01) ==
LOC: RADMAMWWP 07:43
PROVIDERS: ATTEND Internal Medicine
DX: Z12.31 Encounter for screening mammogram for malignant neoplasm of breast (principal)
CPT/HCPCS: 77063; 77067

== ENCOUNTER 2022-12-11 12:42 | Day surgery (SDC) | payer OTHER ==
[2022-12-11 14:04] VITALS: RESP 20; TEMP 98.3
[2022-12-11 14:05] VITALS: BP 132/74; PULSE 95
--- NOTE | 2022-12-11 14:05 | US ---
ULTRASOUND GUIDED FNA THYROID BIOPSY: CLINICAL HISTORY: Right thyroid 5.1 cm nodule. FINDINGS: The procedure was explained to the patient. The risks, complications, benefits and alternatives were discussed and any questions were answered. Informed consent was obtained. Patient was placed supin e on the ultrasound table and prepped and draped in the usual sterile fashion. Utilizing a 25 gauge needle, five passes were made into the requested right thyroid nodule. Patient was stable throughout the procedure. Pathology is pending. All elements of maximal barrier technique were utilized. IMPRESSION: 1. Successful ultrasound guided FNA thyroid biopsy.
== END 2022-12-11 14:05 | disposition home or self-care (01) ==
LOC: RADPROMAIN 12:42
PROVIDERS: ATTEND Internal Medicine Endocrinology, Diabetes & Metabolism
DX: E04.2 Nontoxic multinodular goiter (principal)
CPT/HCPCS: 10005; 88173; 88305